=== PATIENT | female | born 1960 | race Caucasian/White ===

== ENCOUNTER → 2022-02-03 17:07 | Outpatient (CLI) | payer OTHER, SELFPAY ==
--- NOTE | 2022-02-03 17:13 | DI.RAD.S_ITS ---
PROCEDURE: XR LUMBAR SPINE MIN 4V INDICATIONS: Right SI dysfunction TECHNIQUE: 5 views of the lumbar spine were acquired, including bilateral oblique views. COMPARISON: None. FINDINGS: Bones: 5 nonrib-bearing vertebrae are present. There is normal bony alignment. Degenerative endplate changes, loss of disc height and bilateral facet arthrosis at L4-5 level is seen. No vertebral body compression fractures. No suspicious bony lesions. Right worse than left bilateral SI joint osteoarthritic changes are seen with joint space narrowing and subchondral sclerosis. No bony erosion or ankylosis. Soft tissues: Overlying bowel gas pattern is normal. No suspicious soft tissue calcifications. Oblique images: No pars defects. IMPRESSION: 1. Degenerative disc disease at L4-5 level. No compression fracture or spondylolisthesis. No pars defects. 2. 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 No bony erosion or ankylosis. Dictated by: Burton Talbert M.D. on 02/04/2022 at 8:19 Approved by: Burton Talbert M.D. on 02/04/2022 at 8:21
== END ==
PROVIDERS: PCP Family Medicine; Referring Provider Physical Medicine & Rehabilitation; Visit Provider Physical Medicine & Rehabilitation
DX: M48.061 Spinal stenosis, lumbar region without neurogenic claudication (principal); M51.36 Other intervertebral disc degeneration, lumbar region; M46.1 Sacroiliitis, not elsewhere classified; M53.3 Sacrococcygeal disorders, not elsewhere classified
CPT/HCPCS: 72110

== ENCOUNTER 2022-02-16 13:40 | Outpatient (CLI) | payer OTHER, SELFPAY ==
[2022-02-16] VITALS (8 sets, daily range): BP systolic 123–145; BP diastolic 69–85; PULSE 75–84; RESP 12–20; TEMP 36.3; O2SAT 97–100
--- NOTE | 2022-02-16 13:41 | DI.RAD.S_ITS ---
PROCEDURE: PAIN SI JOINT INJECTION INDICATIONS: RIGHT SACROILIAC DISORDER COMPARISON: [facility], CR, XR LUMBAR SPINE MIN 4V, 02/03/2022, 17:22. FINDINGS: On these intraprocedural images, there is a spinal needle seen overlying the inferior aspect of the right sacroiliac joint. Appropriate position of the tip of the needle was confirmed by injection of a small amount of iodinated contrast. IMPRESSION: Successful sacroiliac joint injection. Dictated by: Raj Woods M.D. on 02/16/2022 at 15:01 Approved by: Raj Woods M.D. on 02/16/2022 at 15:02
[2022-02-16] MEDS: MIDAZOLAM 2 MG/2 ML VIAL IV (14:34)
[2022-02-16] MEDS: IOPAMIDOL 15 ML VIAL 3 ML INJ (14:39)
[2022-02-16] MEDS: BETAMETHASONE 30 MG/5 ML MDV 12 MG INJ (14:39)
[2022-02-16] MEDS: BUPIVACAINE 0.5% MDV 2 ML SUBCUT (14:39)
--- NOTE | 2022-02-16 14:47 | PM.PROC.IR.1 ---
Date/Time/Diagnoses Date of procedure: 02/16/22 Time of procedure: 14:47 Pre-procedure diagnosis: Sacroiliac joint pain/DJD Post-procedure diagnosis: same Procedure Notes Procedure: Fluoroscopically guided contrast controlled right sacroiliac joint injection Indications: Jenny is referred by Dr. Garcia for treatment of right sacroiliac joint DJD Physician: Dawson Ace Total Fluoroscopy time (seconds): 9 Total sedation minutes: 10 Complications: none Procedure in detail & Post-procedure care: DESCRIPTION OF PROCEDURE Fluoroscopically guided, contrast controlled right sacroiliac joint injection Following review of allergies and review of potential side effects and complications, including, but not necessarily limited to, infection, allergic reaction, local tissue breakdown, temporary as well as permanent nerve injury, paralysis, stroke and possible , the patient indicated that they understood and agreed to proceed. An informed consent was signed by the patient, witnessed by a nurse, and placed in the patient's chart. Additionally, other treatment options including modalities, medications, and physical therapy were reviewed with the patient. After review of previous anaesthesic history and IV conscious sedation the patient was deemed safe to proceed with today?s procedure with IV conscious sedation as ASA class II designation. Safety time-out was performed to confirm patient ID, procedure to be performed and site of procedure. IV sedation was accomplished with a combination of 2mg of Versed was administered by the RN after DO order, titrated to patient comfort during the course of the procedure while the patient remained responsive to all verbal commands In the prone position following sterile prep and drape of the pelvic region, the hyper lucency on in the inferior aspect of the sacroiliac joint was identified fluoroscopically the skin was anesthetized be a 25 gauge 1 eventual with approximately 2 cc of 1% lidocaine solution. At this point, a 22 gauge 3 in spinal needle was atraumatically introduced and advanced under fluoroscopic guidance into the inferior aspect of the right sacroiliac joint. Following negative aspiration, approximately 0.3cc of Isovue-300 was injected confirming intra-articular placement without vascular uptake. Radiographic data, including multiple fluoroscopic views of the pelvis, reveals a spinal needle in the sacroiliac joint hyper lucent zone. Subsequent view show flow contrast tear superiorly and inferiorly within the joint capsule without vascular intrathecal uptake. At this point a total of 1cc of 0.5% Marcaine was combined with 1cc of 6 mg of betamethasone was injected without incident. The procedure tolerated the procedure well without signs or symptoms of complications prior to transfer to the recovery area continued monitoring without incident. The patient was then transferred to the recovery area with a bur observed for an appropriate time after the injection. The patient reverted a vas score of 7 prior to the procedure and post-procedure vas of 1. POSTOP INSTRUCTIONS The patient was provided with a pain like to continue to record the patient's response to the target specific procedure prior to the patient's follow-up visit with the referring physician. Additionally, specific post injection care instructions and a contact number to our office were provided if concerns arise regarding the possible complications associated with procedure are suspected.
== END 2022-02-16 15:07 | disposition home or self-care (01) ==
PROVIDERS: PCP Family Medicine; Referring Provider Physical Medicine & Rehabilitation; Visit Provider Physical Medicine & Rehabilitation
DX: M53.3 Sacrococcygeal disorders, not elsewhere classified (principal); M46.1 Sacroiliitis, not elsewhere classified
CPT/HCPCS: 27096; 99152; J0702; J2250